=== PATIENT | male | born 1935 | race Caucasian/White ===

== ENCOUNTER 2016-05-14 15:34 | Emergency (ER) | payer MEDICAID, OTHER ==
[~2016-05-14] VITALS: Ht 172.7 cm; Wt 83.9 kg
[~2016-05-14 15:34] MED LIST: ACETAMINOPHEN650 M2 ORAL; ASPIRIN EC325 MG ORAL; BUSPAR10 MG PO; CRANBERRY500 M2 PO; DOCUSATE SODIU250 MG ORAL; GEODON20 MG ORAL; KLONOPIN0.5 MG ORAL; MAG-AL PLUS XS30 M1 PO; MILK OF MA400 MG/51 ORAL; MULTIVITAMINS1 EAC8 PO
[2016-05-14 15:41] VITALS: BP 158/112
[2016-05-14 16:18] LABS: MEAN CORPUSCULAR HGB CONC 34.9 G/DL (32.0-36.0); MEAN CORPUSCULAR VOLUME 95 FL (80-99); MEAN PLATELET VOLUME 8.8 FL (6.5-10.1); PLATELET COUNT 113 K/UL (150-450); RED BLOOD COUNT 5.39 M/UL (4.70-6.10); RED CELL DISTRIBUTION WIDTH 12.9 % (11.6-14.8); WHITE BLOOD COUNT 10.1 K/UL (4.8-10.8)
[2016-05-14 16:21] LABS: APPEARANCE,URINE CLEAR; KETONES,URINE 1+ (NEGATIVE); LEUKOCYTE ESTERASE ,URINE NEGATIVE (NEGATIVE); NITRITE,URINE NEGATIVE (NEGATIVE); PH,URINE 5 (4.5-8.0); PROTEIN,URINE NEGATIVE (NEGATIVE); UROBILINOGEN,URINE NORMAL MG/DL (0.0-1.0)
[2016-05-14 16:24] LABS: INR 1.2 (0.9-1.1); PROTHROMBIN TIME 12.4 SEC (9.30-11.50); TROPONIN I < 0.30 ng/mL (<=0.30)
[2016-05-14 16:25] LABS: ALANINE AMINOTRANSFERASE 56 U/L (3-41); ALBUMIN/GLOBULIN RATIO 1.2 (1.0-2.7); ANION GAP 16 (5-15); ASPARTATE AMINO TRANSFERASE 51 U/L (5-40); BASOPHILS % (AUTO) 0.2 % (0.0-2.0); CARBON DIOXIDE 25 mEQ/L (20-30); CHLORIDE 100 mEQ/L (98-107); CREATININE 0.9 mg/dL (0.7-1.2); HEMOLYSIS 14; LIPASE 19 U/L (< 60); LYMPHOCYTES % (AUTO) 7.5 % (20.0-45.0); MONOCYTES % (AUTO) 3.2 % (1.0-10.0); POTASSIUM 4.8 mEQ/L (3.4-4.9); SODIUM 141 mEQ/L (135-145); TOTAL PROTEIN 7.4 g/dL (6.6-8.7)
--- NOTE | 2016-05-14 16:47 | Emergency Room Report ---
History of Present Illness General Chief Complaint: Vomiting Source: Patient, EMS Present Illness HPI Patient is an 80-year-old male brought in by EMS after increased vomiting. Patient of vomiting since yesterday. Patient noted have some yellow colored emesis. Patient had no prior history of abdominal surgeries. Patient prior history of dementia. He had not been having any fever per nursing staff. 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 Hx Cancer: No Hx Gastrointestinal Problems: No Hx Dialysis: No - UTI Hx Neurological Problems: Yes - CATATONIC SCHIZOPHRENIA, GLAUCOMA Hx Cerebrovascular Accident: Yes Review of Systems All Other Systems: negative except mentioned in HPI Physical Exam Vital Signs Date Time Temp Pulse Resp B/P Pulse Ox O2 Delivery O2 Flow Rate FiO2 05/14/16 15:28 97.9 56 19 165/96 91 Room Air Sp02 EP Interpretation: reviewed, normal General Appearance: normal inspection, no apparent distress, alert, thin, Chronically Ill Head: atraumatic ENT: normal ENT inspection, hearing grossly normal, normal voice Neck: normal inspection, full range of motion, supple, no bony tend Respiratory: normal inspection, lungs clear, normal breath sounds, no respiratory distress, no retraction, no wheezing Cardiovascular #1: regular rate, rhythm, no edema Gastrointestinal: soft, no guarding, hernia, other - well healed surgical scar Genitourinary: no CVA tenderness Musculoskeletal: back normal, normal range of motion, other - left bka Neurologic: normal inspection, alert, responsive, hospitality ambassador III-XII nml as tested, speech normal, motor weakness, oriented Psychiatric: mood/affect normal Skin: normal inspection, normal color, no rash Medical Decision Making Diagnostic Impression: Primary Impression: Abdominal pain Additional Impressions: Abdominal aortic aneurysm (AAA) 3.0 cm to 5.5 cm in diameter in male Bowel obstruction ER Course Patient presented for abdominal pain. Differential diagnoses included ischemic bowel, appendicitis, perforated viscus, abdominal aortic aneurysm, inferior myocardial infarction, viral gastroenteritis. Because of complexity of patient' s case laboratory testing and imaging studies were ordered.Laboratory testing was notable for mildly elevated BUN/creatinine. The patient was noted to have some evidence of peripheral vascular disease as he had previously the patient is left lower extremity. CT abdomen pelvis read by radiology showed a 5.7 cm abdominal aortic aneurysm with mural thrombus. 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 there is no free air. Patient was discussed with the [facility] physician who agreed to accept the patient for transfer to [place] for higher level of care. Patient was kept n.p.o. He was started on IV hydration.The patient was noted to not have any evidence of aneurysm leaking.Patient given IV Zofran. Laboratory Tests Test 05/14/16 15:40 05/14/16 16:00 White Blood Count 10.1 K/UL (4.8-10.8) Red Blood Count 5.39 M/UL (4.70-6.10) Hemoglobin 17.8 G/DL (14.2-18.0) Hematocrit 51.0 % (42.0-52.0) Mean Corpuscular Volume 95 FL (80-99) Mean Corpuscular Hemoglobin 33.0 PG (27.0-31.0) H Mean Corpuscular Hemoglobin Concent 34.9 G/DL (32.0-36.0) Red Cell Distribution Width 12.9 % (11.6-14.8) Platelet Count 113 K/UL (150-450) L Mean Platelet Volume 8.8 FL (6.5-10.1) Neutrophils (%) (Auto) 89.0 % (45.0-75.0) H Lymphocytes (%) (Auto) 7.5 % (20.0-45.0) L Monocytes (%) (Auto) 3.2 % (1.0-10.0) Eosinophils (%) (Auto) 0.0 % (0.0-3.0) Basophils (%) (Auto) 0.2 % (0.0-2.0) Prothrombin Time 12.4 SEC (9.30-11.50) H Prothrombin Time INR 1.2 (0.9-1.1) H PTT 29 SEC (23-33) Sodium Level 141 mEQ/L (135-145) Potassium Level 4.8 mEQ/L (3.4-4.9) Chloride Level 100 mEQ/L (98-107) Carbon Dioxide Level 25 mEQ/L (20-30) Anion Gap 16 (5-15) H Blood Urea Nitrogen 26 mg/dL (7-23) H Creatinine 0.9 mg/dL (0.7-1.2) Estimate Glomerular Filtration Rate mL/min (>60) Glucose Level 110 mg/dL (74-106) H Calcium Level 9.0 mg/dL (8.6-10.2) Total Bilirubin 1.0 mg/dL (0.0-1.2) Aspartate Amino Transferase (AST) 51 U/L (5-40) H Alanine Aminotransferase (ALT) 56 U/L (3-41) H Alkaline Phosphatase 147 U/L (40-129) H Troponin I < 0.30 ng/mL (<=0.30) Total Protein 7.4 g/dL (6.6-8.7) Albumin 4.1 g/dL (3.5-5.2) Globulin 3.3 g/dL Albumin/Globulin Ratio 1.2 (1.0-2.7) Lipase 19 U/L (< 60) Urine Color Yellow Urine Appearance Clear Urine pH 5 (4.5-8.0) Urine Specific [place] 1.020 (1.005-1.035) Urine Protein Negative (NEGATIVE) Urine Glucose (UA) Negative (NEGATIVE) Urine Ketones 1+ (NEGATIVE) H Urine Occult Blood Negative (NEGATIVE) Urine Nitrite Negative (NEGATIVE) Urine Bilirubin Negative (NEGATIVE) Urine Urobilinogen Normal MG/DL (0.0-1.0) Urine Leukocyte Esterase Negative (NEGATIVE) Chest X-Ray Diagnostic Results EP Interpretation: Yes Findings: no consolidation, no effusion, no pneumothorax, no acute cardiopulmonary disease Number of Views: 1 Last Vital Signs Date Time Temp Pulse Resp B/P Pulse Ox O2 Delivery O2 Flow Rate FiO2 05/14/16 15:41 98.0 57 24 158/112 98 Room Air Status: unchanged Disposition: [facility]FER [facility] Condition: Serious Referrals: NON PHYSICIAN (PCP) Caio Aviles May 14, 2016 16:47
[2016-05-14] MEDS ORDERED: Haloperidol 5mg/ml Inj IM ONE (19:30)
[2016-05-14 20:05] VITALS: BP 152/96
[2016-05-14 21:02] VITALS: BP 155/92
[2016-05-14 22:33] VITALS: BP 157/91
[2016-05-14 22:47] VITALS: BP 157/91
--- NOTE | 2016-05-15 09:18 | Diagnostic Imaging Report ---
\H\CT Abdomen/Pelvis with Intravenous Contrast Indication: \N\Acute abdominal pain, and vomiting. Concern for obstruction.\H\ Comparison: None available. Technique: Utilizing a multislice CT scanner, a CT of the abdomen and pelvis was performed after administration of intravenous contrast. All CT scans at this facility use dose modulation, iterative reconstruction, and/or weight based dosing when appropriate to reduce radiation dose to as low as reasonably achievable. CTDIvol (mGy): 17 DLP (mGy-cm): 875 Findings: The visualized lung bases exhibit mild emphysematous change with dependent atelectasis or scarring. Heavy calcification of the coronary arteries is noted. The stomach is moderately distended with an air-fluid level. A small hiatal hernia is identified with nonspecific enhancement of the distal esophagus. The liver is unremarkable. The gallbladder is not definitely visualized and may be contracted or surgically absent. The common bile duct is mildly dilated measuring 7 mm in diameter. The pancreas, spleen and adrenal glands are unremarkable. Nonspecific small low-attenuation lesions in the left kidney likely represent cysts measuring up to 15 mm in size. There is evidence of chronic cortical scarring and atrophy involving the upper right kidney. No hydronephrosis. The urinary bladder is decompressed with an indwelling Jha catheter. The pelvic organs are grossly unremarkable. A large left paraumbilical abdominal wall hernia containing bowel loops is identified. The hernia roughly measures 8 x 4 cm in size. Anterior abdominal wall defect roughly measures 8 cm in size. Moderately distended fluid-filled small bowel loops predominantly in the left hemiabdomen and pelvis measuring up to 5 cm in diameter are identified. The transverse and descending colon appear decompressed. Constellation of findings are compatible with small bowel obstruction with suspected transition point in the mentioned ventral wall hernia and a second transition point in the upper abdomen below the pancreatic head and abutting the infrarenal aorta. Closed-loop, complete or high-grade bowel obstruction is not excluded. There is no extraluminal gas or fluid. There are no enlarged lymph nodes. Scattered atherosclerotic disease of the abdominal aorta and major branches is identified. The infrarenal abdominal aorta is tortuous with aneurysmal dilatation measuring up to 57 mm in diameter with mural thrombus. Aneurysmal dilatation of the infrainguinal left common femoral artery measuring up to 38 mm in diameter with extensive mural thrombus is also noted. The proximal left superficial femoral artery is not opacified and may be occluded. Moderate multilevel degenerative changes of the visualized thoracolumbar spine are noted. Severe degenerative change and arthrosis of the right hip joint and the pubic symphysis with severe joint space height loss, subchondral cyst formation and osteophytosis/heterotopic bone formation is noted. Remaining visualized osseous structures are not optimally evaluated for presence of acute fracture due to diffuse degenerative change. \N\\H\Impression: 1. Constellation of findings described above compatible with small bowel obstruction with suspected transition point in the mentioned left paraumbilical ventral wall hernia and a second transition point in the upper abdomen caudal to the pancreatic head abutting the infrarenal aorta. Closed-loop, complete or high-grade bowel obstruction is not excluded. Surgical consultation is recommended. 2. Aneurysmal dilatation of the infrarenal abdominal aorta measuring up to 57 mm in diameter with mural thrombus. Aneurysmal dilatation of the infrainguinal left common femoral artery measuring up to 38 mm in diameter with mural thrombus. The left superficial femoral artery may be occluded. 3. Other nonacute findings, as further detailed in the body of the report.\N\
--- NOTE | 2016-05-16 10:54 | Cardiology Report ---
APPROVED REPORT EKG Measurement Heart [id number] Sinus bradycardia with 1st degree AV block Left axis deviation Septal infarct, age undetermined Abnormal ECG
== END 2016-05-14 22:50 | disposition short-term general hospital (02) ==
LOC: EDBD 15:34 → EMR 16:02 → EDBEDREQ 20:17 → EDBEDREQSVC 20:54 → EDBEDREQ 20:54 → EMR 22:50
DX: I71.4 Abdominal aortic aneurysm, without rupture (principal); R11.10 Vomiting, unspecified; K56.60 Unspecified intestinal obstruction; I10 Essential (primary) hypertension; I50.9 Heart failure, unspecified; H54.0 Blindness, both eyes; H91.90 Unspecified hearing loss, unspecified ear; Z89.619 Acquired absence of unspecified leg above knee; Z86.59 Personal history of other mental and behavioral disorders; Z86.73 Personal history of transient ischemic attack (TIA), and cerebral infarction without residual deficits
CPT/HCPCS: 36415; 74177; 80053; 81003; 83690; 84484; 85025; 85610; 85730; 86850; 86900; 86901; 87081; 93005; 96360; 96374; 99285; J2405; J7040; Q9967

== ENCOUNTER 2017-06-05 02:10 | Emergency (ER) | payer MEDICARE, OTHER ==
[~2017-06-05] VITALS: Ht 170.2 cm; Wt 63.5 kg
[2017-06-05 02:20] VITALS: BP 141/76
[2017-06-05] MEDS ORDERED: DULCOLAX10 MG RC (02:27)
[2017-06-05] MEDS ORDERED: CRANBERRY450 M3 PO (02:27)
[2017-06-05] MEDS ORDERED: MEGACE ES625 MG/5 M PO (02:27)
[2017-06-05] MEDS ORDERED: ACETAMINOPHEN325 M1 ORAL (02:27)
[2017-06-05] MEDS ORDERED: BISACODYL5 MG ORAL (02:27)
[2017-06-05] MEDS ORDERED: CALCIUM 500 +1 EAC6 PO (02:27)
--- NOTE | 2017-06-05 02:39 | Emergency Room Report ---
History of Present Illness General Chief Complaint: General Complaint Source: Medical Record, EMS Present Illness HPI This is an 81-year-old male coming from a longterm. He has muscle medical problem including dementia diabetes. He has a left AKA. He also had a recent occlusion of the right femoral artery. He is awaiting vascular surgery consultation. Nursing staff noted that is a mass in the abdomen is "bubbly". He has a history of abdominal aortic aneurysm. There is no pain. No nausea no vomiting and no fever. No bleeding. 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 Hx Cancer: No Hx Gastrointestinal Problems: No Hx Dialysis: No - UTI Hx Neurological Problems: Yes - CATATONIC SCHIZOPHRENIA, GLAUCOMA Hx Cerebrovascular Accident: Yes Review of Systems Eye: Denies: eye pain, blurred vision ENT: Denies: ear pain, nose congestion, throat swelling Respiratory: Denies: cough, shortness of breath Cardiovascular: Denies: chest pain, palpitations Gastrointestinal: Denies: abdominal pain, diarrhea, nausea, vomiting Musculoskeletal: Denies: back pain, joint pain Skin: Denies: rash Neurological: Denies: headache, numbness Endocrine: Denies: increased thirst, increased urine Hematologic/Lymphatic: Denies: easy bruising All Other Systems: negative except mentioned in HPI Physical Exam Vital Signs Date Time Temp Pulse Resp B/P (MAP) Pulse Ox O2 Delivery O2 Flow Rate FiO2 06/05/17 02:10 98.1 88 18 141/76 95 Room Air 98.1 vitals normal Sp02 EP Interpretation: reviewed, normal General Appearance: well appearing, no apparent distress, alert Head: normocephalic, atraumatic Eyes: bilateral eye PERRL, bilateral eye EOMI ENT: hearing grossly normal, normal pharynx Neck: full range of motion, supple, no meningismus Respiratory: chest non-tender, lungs clear, normal breath sounds Cardiovascular #1: regular rate, rhythm, no murmur Gastrointestinal: normal bowel sounds, non tender, no mass, no organomegaly, no bruit, non-distended, other - Patient with a ventral hernia. Strong bowel sounds. No pulsatile mass. Musculoskeletal: back normal, other - Contracted Psychiatric: mood/affect normal Skin: warm/dry Medical Decision Making Diagnostic Impression: Primary Impression: Ventral hernia without obstruction or gangrene Additional Impressions: Constipation Qualified Codes: K59.00 - Constipation, unspecified AAA (abdominal aortic aneurysm) without rupture ER Course This patient presents with abdominal finding that was concerning to nursing staff. On my exam he has an obvious ventral hernia in the squishy/probably sensation is from the bowel. No evidence of obstruction. A palpable mass is probably a stool mass. He does have a slightly enlarging AAA but no rupture. This patient in my opinion is not a surgical candidate. He is pending evaluation by vascular surgeon. This can be done as an outpatient. We'll discharge back to longterm. CT/MRI/US Diagnostic Results CT/MRI/US Diagnostic Results : Imaging Test Ordered: CT abdomen and pelvis Impression read by radiologist. Interval increase in AAA. Measured 6.7 cm. Significant distended Stool filled rectum. Last Vital Signs Date Time Temp Pulse Resp B/P (MAP) Pulse Ox O2 Delivery O2 Flow Rate FiO2 06/05/17 02:10 98.1 88 18 141/76 95 Room Air 98.1 Status: improved Disposition: XFER SNF Condition: Stable Additional Instructions: Follow-up your doctor as scheduled. Return if symptom worsen. IMANI DIMAS M.D. Jun 05, 2017 02:39
[2017-06-05 05:01] VITALS: BP 151/81
[2017-06-05 05:15] VITALS: BP 151/81
--- NOTE | 2017-06-05 11:39 | Diagnostic Imaging Report ---
Indication: Abdominal pain, history of abdominal aortic aneurysm, right femoral arterial occlusion Technique: Spiral acquisitions obtained through the abdomen and pelvis. No oral contrast utilized, per emergency room physician request No IV contrast utilized, per referring physician request.. Multiplanar reconstructions were generated. Total dose length product 450.72 mGycm. CTDIvol(s) 9.6 mGy. Dose reduction achieved using automated exposure control Comparison: May 14, 2016 contrast study Findings: Saccular infrarenal abdominal aortic aneurysm is again demonstrated, currently measuring 6.4 cm transverse by 5.1 cm AP by 8 cm craniocaudad, previously 5.6 x 4.8 x 7.4 cm. No evidence of leakage or rupture. The iliac arteries are tortuous and ectatic although not frankly aneurysmal. As previously, there is aneurysmal dilatation of the left common femoral artery which currently measures 4.1 cm in diameter, evidence of leakage or rupture slightly increased from before. No evidence of leakage or rupture. The rectum is distended by stool, currently measures 10 cm transverse diameter. There is questionably some focal mural thickening of the ascending colon, and a mass that is not excludable. The appendix is not definitely demonstrated. Small bowel loops are generalized pulmonary caliber with considerable fluid. No definite transition point demonstrated. No free or loculated peritoneal air or fluid. Previously demonstrated ventral hernia is no longer evident. There is persistent diastasis of the rectus abdominis muscle The lack of IV contrast limits assessment of the solid organs. The liver is unremarkable. The gallbladder is not definitely visualized. The pancreas, spleen, adrenals are unremarkable. There is interim development of right hydronephrosis. There is marked right hydroureter which extends all the way to the ureterovesical junction. The bladder is distended. Previously demonstrated Jha catheter has been removed. The left kidney and collecting system are unremarkable. There are severe degenerative changes of the lumbar spine and of the right hip. There is a fracture deformity of the left iliac wing which was present previously in retrospect. There is a right-sided pleural effusion. There is compressive atelectasis of portions of the visualized right lower lobe Impression: Since 05/14/2016, interval enlargement of previously demonstrated saccular infrarenal abdominal aortic aneurysm, as described, by nearly 1 cm. No evidence of leakage or rupture Slightly increased caliber of left common femoral artery aneurysm Mildly dilated diffusely fluid-filled small bowel loops, without obvious transition point. While possibly on the basis of distal partial small bowel obstruction, probably on the basis of ileus or enteritis Interim resolution of previously demonstrated ventral hernia. Dilated stool filled rectum, 10 mm diameter, suspicious for rectal fecal impaction Distended urinary bladder. Intervally catheter removal Right hydronephrosis and hydroureter, possibly secondary to the above Right-sided pleural effusion and basilar compressive atelectasis Left iliac wing fracture deformity, unchanged from previous. Advanced degenerative changes of the hips This agrees with the preliminary interpretation provided overnight by [facility] teleradiology service. The CT scanner at [facility] is accredited by the [employer] and the scans are performed using protocols designed to limit radiation exposure to as low as reasonably achievable to attain images of sufficient resolution adequate for diagnostic evaluation.
== END 2017-06-05 05:15 ==
LOC: EDSEX 02:10 → EDBD 02:10 → EMR 02:25
DX: K43.9 Ventral hernia without obstruction or gangrene (principal); K59.00 Constipation, unspecified; I71.4 Abdominal aortic aneurysm, without rupture; F20.9 Schizophrenia, unspecified; H40.9 Unspecified glaucoma; Z86.73 Personal history of transient ischemic attack (TIA), and cerebral infarction without residual deficits; I50.9 Heart failure, unspecified; I73.9 Peripheral vascular disease, unspecified; H54.7 Unspecified visual loss; Z89.612 Acquired absence of left leg above knee; F03.90 Unspecified dementia, unspecified severity, without behavioral disturbance, psychotic disturbance, mood disturbance, and anxiety; E11.9 Type 2 diabetes mellitus without complications
CPT/HCPCS: 74176; 99284

== ENCOUNTER 2017-06-17 08:49 | Emergency (ER) | payer MEDICARE ==
[~2017-06-17] VITALS: Ht 167.6 cm; Wt 45.4 kg
[~2017-06-17 08:49] MED LIST changes: +ACETAMINOPHEN325 M1 ORAL; +BISACODYL5 MG ORAL; +CALCIUM 500 +1 EAC6 PO; +CRANBERRY450 M3 PO; +DULCOLAX10 MG RC; +MEGACE ES625 MG/5 M PO
--- NOTE | 2017-06-17 08:58 | Emergency Room Report ---
History of Present Illness General Chief Complaint: Multiple Trauma/Fall Source: EMS Present Illness HPI Patient presents after a fall. This was unwitnessed. He has no history of seizures. He has an abrasion on his forehead. No other current history available. Unknown tetanus status. Patient not answer questions. Patient with AKA L. H/O dementia and schizophrenia AAA dx 2017. Ventral hernia this month with eval. Legally blind. 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 Hx Cancer: No Hx Gastrointestinal Problems: No Hx Dialysis: No - UTI Hx Neurological Problems: Yes - CATATONIC SCHIZOPHRENIA, GLAUCOMA Hx Cerebrovascular Accident: Yes Review of Systems All Other Systems: limited Physical Exam Vital Signs Date Time Temp Pulse Resp B/P (MAP) Pulse Ox O2 Delivery O2 Flow Rate FiO2 06/17/17 08:26 97.9 54 18 147/75 100 Room Air 97.9 Sp02 EP Interpretation: reviewed, normal General Appearance: no apparent distress, alert, thin, Chronically Ill Head: normocephalic, other - abrasion forehead Eyes: bilateral eye normal inspection ENT: dry mucus membranes Neck: supple, other - unable to determine if tenderness Respiratory: lungs clear, normal breath sounds Cardiovascular #1: regular rate, rhythm Cardiovascular #2: 2+ radial (R); 1+ dorsalis pedis (R) Gastrointestinal: normal bowel sounds, non tender, non-distended Genitourinary: normal inspection Musculoskeletal: back normal, other - AKA L Neurologic: responsive - minimally, motor strength/tone normal, sensory intact Psychiatric: other - ebulic, not respond to calling name Skin: warm/dry, other - erythema R foot with ulcer 2nd toe, not cold Medical Decision Making Diagnostic Impression: Primary Impression: Multiple injuries due to trauma Additional Impressions: Head injury Qualified Codes: S09.90XA - Unspecified injury of head, initial encounter History of abdominal aortic aneurysm (AAA) Unilateral AKA ER Course Patient presents post fall with head injury. DDx: bleed, fx, contusion, abrasion. Some older abrasions on extremities, but no other joint tenderness. Vascular insufficiency of R foot, but is warm. CT head and neck indicated. Tetanus also given. Abdomen without pain. CT without fracture or bleed. Patient purposeful - pulling curtains to see neighbor. Still ebullic. No medical emergency at this time. Patient stable for outpatient observation and treatment. CT/MRI/US Diagnostic Results CT/MRI/US Diagnostic Results #1: Imaging Test Ordered: head Impression no fx or bleed - atrophy CT/MRI/US Diagnostic Results #2: Imaging Test Ordered: c-spine Impression djd, no fx, spondylosis Last Vital Signs Date Time Temp Pulse Resp B/P (MAP) Pulse Ox O2 Delivery O2 Flow Rate FiO2 06/17/17 11:59 98.0 48 15 158/87 100 Room Air 98.0 Status: unchanged Disposition: XFER SNF Condition: Stable Scripts Bacitracin (Bacitracin) 28.4 Gm Oint...g. 1 APPLIC TOPIC BID, #20 GM Prov: Angus Santoro M.D. 06/17/17 Angus Santoro M.D. Jun 17, 2017 08:58
[2017-06-17] MEDS ORDERED: Tetanus/Diptheria/Pertussis Vaccine 0.5ml Syr IM ONE (09:00)
[2017-06-17] MEDS ORDERED: Bacitracin Oint UD TOPIC ONE (09:00)
[2017-06-17 09:34] VITALS: BP 144/74
--- NOTE | 2017-06-17 09:42 | Diagnostic Imaging Report ---
Indication: Head trauma Technique: Continuous helical CT scanning of the head was performed utilizing automated exposure control without intravenous contrast material. Axial and coronal reconstructions were obtained. Comparison: None CT dose: Total DLP 2649 mGycm; CTDI vol 70.4 and 70.4 mGy Findings: There is no acute intracranial hemorrhage, mass effect or cortical edema. The ventricles, cisterns and sulci are prominent consistent with atrophy. Periventricular hypoattenuation is seen, a nonspecific finding. The posterior fossa and fourth ventricle are unremarkable. Sellar and suprasellar regions are grossly unremarkable. There is moderate scalp swelling but no skull fracture. Paranasal sinuses are clear. There is chronic appearing opacification and sclerosis of the right mastoids. Impression: No evidence of acute intracranial hemorrhage, mass effect or cortical edema. MRI may be obtained for more sensitive evaluation as clinically indicated. Mild right scalp swelling without skull fracture. Atrophy and nonspecific periventricular hypoattenuation suggestive of chronic ischemic microvascular changes. The CT scanner at [facility] is accredited by the [employer] and the scans are performed using protocols designed to limit radiation exposure to as low as reasonably achievable to attain images of sufficient resolution adequate for diagnostic evaluation.
--- NOTE | 2017-06-17 09:45 | Diagnostic Imaging Report ---
Indication: Cervical trauma status post fall Technique: CT cervical spine was performed utilizing automated exposure control without intravenous contrast material. Axial and coronal images were generated. CT dose: Total DLP 235 mGycm; CTDI vol 14.5 mGy Comparison: None Findings: Motion limits evaluation. There is no gross fracture. Craniocervical alignment is normal. Degenerative cervical spondylosis is noted with endplate osteophytes and mild C3/C4, moderate C4/C5 and severe C5/C6 and C6/C7 disc space narrowing with posterior disc osteophyte complexes. Multilevel uncovertebral spurring is noted with varying degrees of neuroforaminal stenosis severe involving the left C4/C5, C5/C6 and C6/C7 levels. Degenerative facet arthropathy is present. Prevertebral soft tissues are within normal limits. Atherosclerotic changes are present. Impression: Evaluation limited by motion but no gross acute fracture. Degenerative cervical spondylosis. The CT scanner at [facility] is accredited by the [employer] and the scans are performed using protocols designed to limit radiation exposure to as low as reasonably achievable to attain images of sufficient resolution adequate for diagnostic evaluation.
[2017-06-17] MEDS ORDERED: BACITRACIN15 GM TOPIC (10:41)
[2017-06-17 11:03] VITALS: BP 159/78
[2017-06-17 11:57] VITALS: BP 158/87
[2017-06-17 11:59] VITALS: BP 158/87
== END 2017-06-17 11:59 ==
LOC: EDBD 08:49 → EMR 10:17
DX: S00.81XA Abrasion of other part of head, initial encounter (principal); S09.90XA Unspecified injury of head, initial encounter; Z23 Encounter for immunization; F03.90 Unspecified dementia, unspecified severity, without behavioral disturbance, psychotic disturbance, mood disturbance, and anxiety; F20.9 Schizophrenia, unspecified; Z89.612 Acquired absence of left leg above knee; I71.4 Abdominal aortic aneurysm, without rupture; Z88.1 Allergy status to other antibiotic agents; Z66 Do not resuscitate; I73.9 Peripheral vascular disease, unspecified; H54.8 Legal blindness, as defined in USA; I50.9 Heart failure, unspecified; Z86.73 Personal history of transient ischemic attack (TIA), and cerebral infarction without residual deficits; K43.9 Ventral hernia without obstruction or gangrene; M47.812 Spondylosis without myelopathy or radiculopathy, cervical region; G31.9 Degenerative disease of nervous system, unspecified; W06.XXXA Fall from bed, initial encounter; Y92.129 Unspecified place in nursing home as the place of occurrence of the external cause
CPT/HCPCS: 70450; 72125; 90471; 90715; 99284